=== PATIENT | male | born 1955 | race Caucasian/White ===

== ENCOUNTER 2019-04-22 12:39 | Emergency (ER) | payer SELFPAY ==
[~2019-04-22] VITALS: Ht 170.2 cm; Wt 68.0 kg
[2019-04-22 12:39] VITALS: BP 114/68
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
--- NOTE | 2019-04-22 13:44 | NUR ---
ED Nurse Note: xray done by the bedside.
--- NOTE | 2019-04-22 14:40 | Diagnostic Imaging Report ---
Indication: right leg pain Comparison: None Findings: Two views of the right tibia and fibula were obtained. Intramedullary darlene spanning the entirety of the tibia reducing a fracture of the distal diaphysis. An old fracture of the fibula also noted. Bones are osteopenic. IMPRESSION: No acute fracture identified
--- NOTE | 2019-04-22 14:41 | Diagnostic Imaging Report ---
Indication: Right ankle pain Comparison: None Findings: 2 views of the right ankle obtained. No acute fracture is identified. 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 This is not evaluated well on the current study. Intramedullary darlene the noted in the distal tibia with distal locking screws. Old healed fractures of the distal tibia and fibula are noted. Bones are osteopenic. IMPRESSION: No acute injury identified.
--- NOTE | 2019-04-22 14:49 | Emergency Room Report ---
History of Present Illness General Chief Complaint: Pain Source: EMS Present Illness HPI 63-year-old male presents to the emergency department complaining of 5 out of 10 severity right ankle pain with swelling x1 day. Patient reports previous fracture in this extremity. Patient denies trauma or fall. Patient denies erythema, bruising, warmth, open wounds or rashes. Patient reports attempts to ambulate exacerbate his pain. reports previous surgery 3 years ago to the affected extremity. Pt. reports he did not follow up after initial injury and surgery. Denies paresthesias. Patient denies any relieving factors at this time. Denies any other symptoms. Allergies: Coded Allergies: No Known Allergies (Unverified , 04/22/19) Patient History Past Medical History: see triage record Past Surgical History: none Pertinent Family History: none Reviewed Nursing Documentation: PMH: Agreed; PSxH: Agreed Nursing Documentation-PMH Past Medical History: No History, Except For Review of Systems All Other Systems: negative except mentioned in HPI Physical Exam Vital Signs Date Time Temp Pulse Resp B/P (MAP) Pulse Ox O2 Delivery O2 Flow Rate FiO2 04/22/19 12:33 97.5 90 16 114/68 (83) 96 Room Air Sp02 EP Interpretation: reviewed, normal General Appearance: no apparent distress, alert, GCS 15, non-toxic, thin, other - Disheveled- Head: normocephalic, atraumatic Eyes: bilateral eye normal inspection, bilateral eye PERRL ENT: hearing grossly normal, normal voice Neck: full range of motion Respiratory: lungs clear, normal breath sounds, speaking full sentences Cardiovascular #1: regular rate, rhythm, no edema, normal capillary refill Cardiovascular #2: 2+ dorsalis pedis (R), 2+ dorsalis pedis (L) Musculoskeletal: back normal, normal range of motion, tender - TTP to the lateral right ankle and distal tib/fib, surgical scars noted. Neurologic: alert, oriented x3, responsive, motor strength/tone normal, sensory intact, speech normal, grossly normal Psychiatric: judgement/insight normal Lymphatic: no adenopathy Medical Decision Making PA Attestation Dr. Chavez is my supervising Physician whom patient management has been discussed with. Diagnostic Impression: Primary Impression: Ankle pain, right Qualified Codes: M25.571 - Pain in right ankle and joints of right foot ER Course 63-year-old male presents to the emergency department complaining of 5 out of 10 severity right ankle pain with swelling x1 day. Patient reports previous fracture in this extremity. Patient denies trauma or fall. Patient denies erythema, bruising, warmth, open wounds or rashes. Patient reports attempts to ambulate exacerbate his pain. reports previous surgery 3 years ago to the affected extremity. Pt. reports he did not follow up after initial injury and surgery. Denies paresthesias. Patient denies any relieving factors at this time. Denies any other symptoms. Ddx considered but are not limited to Fracture, dislocation, contusion, Sprain/ Strain/Spasm, orthopedic hardware complication, septic joint, gout, pseudogout just to name a few. Vital signs: are WNL, pt. is afebrile H&PE are most consistent with musculoskeletal injury will perform imaging to r/ o fractures/dislocations. ORDERS: - X-ray Right ankle 3 views and Right Tib/Fib 2 views - evidence of surgical hardware in place, fibular osteophyte, negative for acute fx, Dislocation, or significant soft tissue injury, per preliminary read in ED, and signed by VAHID Zarate, my supervising physician has reviewed, and agrees with my interpretation. ED INTERVENTIONS: - Pt. declines tylenol. DISCHARGE: At this time pt. is stable for d/c to home. Will provide printed patient care instructions, and any necessary prescriptions. Care plan and follow up instructions have been discussed with the patient prior to discharge. Other X-Ray Diagnostic Results Other X-Ray Diagnostic Results #1: X-Ray ordered: Right ankle # of Views/Limited Vs Complete: 3 View Indication: Pain EP Interpretation: Yes PA Xray: Interpretation reviewed, by supervising MD, and agrees with findings. Interpretation: no dislocation, no soft tissue swelling, no fractures, other - vidence of surgical hardware in place, fibular osteophyte Impression: Other - abnormal, no acute findings Electronically Signed by: Violette Zarate PA-C Other X-Ray Diagnostic Results #2: X-Ray ordered: Right Tib/fib # of Views/Limited Vs Complete: 2 View Indication: Pain EP Interpretation: Yes PA Xray: Interpretation reviewed, by supervising MD, and agrees with findings. Interpretation: no dislocation, no soft tissue swelling, no fractures, other - vidence of surgical hardware in place, fibular osteophyte Impression: Other - abnormal: no acute findings Electronically Signed by: Violette Zarate PA-C Last Vital Signs Date Time Temp Pulse Resp B/P (MAP) Pulse Ox O2 Delivery O2 Flow Rate FiO2 04/22/19 12:39 97.5 90 16 114/68 96 Room Air Disposition: HOME, SELF-CARE Condition: Stable Referrals: NOT CHOSEN IPA/,REFERRING (PCP) Tr[facility] Patient Instructions: Ankle Pain Additional Instructions: Take medications as directed. Follow up with a Primary Care Provider or [employer] in 3-5 days , even if your symptoms have resolved. --Please review list of primary care clinics, if you do not already have a primary care provider Return sooner to ED if new symptoms occur, or current symptoms become worse. - Please note that this Emergency Department Report was dictated using [employer] teacher technology software, occasionally this can lead to erroneous entry secondary to interpretation by the dictation equipment. Violette Zarate Apr 22, 2019 14:49
--- NOTE | 2019-04-22 15:05 | NUR ---
Homeless Discharge: Patient is being discharged from medical care. Awake, alert and oriented x3. After care instructions, including referral to community resources were offered, patient declined. Patient verbalized understanding of After care instructions; at this time patient does not request medications, equipment or placement. All medical devices such as IV and ID band were removed. patient declined to take sandwiches, water, bus tokens, and other clothings. Patient ambulated out with all personal belongings with steady gait with his walker.
[2019-04-22 15:06] VITALS: BP 114/68
--- NOTE | 2019-04-22 15:06 | NUR ---
ER DISCHARGE NOTE: Patient is cleared to be discharged per PATRICK BROWN pt is aox4, on room air, with stable vital signs. pt was given dc instructions, pt was able to verbalize understanding, pt id band removed without complications. pt is able to ambulate with steady gait. pt took all belongings.
== END 2019-04-22 15:06 | disposition home or self-care (01) ==
LOC: EDBD 12:39 → EMR 13:15
DX: M25.571 Pain in right ankle and joints of right foot (principal)
CPT/HCPCS: 99284